=== PATIENT | female | born 1995 | race Caucasian/White ===

== ENCOUNTER 2017-02-19 20:43 | Emergency (ER) | payer OTHER ==
[~2017-02-19] VITALS: Ht 154.9 cm; Wt 105.0 kg
[~2017-02-19 20:43] MED LIST: NEXP68IM; PREN1CAP20 PO
[2017-02-19 20:44] VITALS: BP 137/84; PULSE 114; RESP 18; TEMP 98.8; O2SAT 99
[2017-02-19] MEDS ORDERED: BACT800T5 PO (21:47)
[2017-02-19] MEDS ORDERED: IBUP-232 PO (21:47)
--- NOTE | 2017-02-19 21:48 | PD ---
HPI Chief Complaint: Skin Problem Time Seen by Provider: 21:38 Travel History International Travel<30 days: No Contact w/Intl Traveler<30days: No Traveled to known affect area: No History of Present Illness HPI The patient is a 21-year-old female who presents emergency department for an abscess on the left buttock. The patient states she's had an area of swelling and tenderness for the last 3 days over the left buttock, along the medial aspect. The patient does note a history of previous abscesses to the buttocks, last summer, with subsequent incision and drainage. The patient denies any fever, chills, or sweats. Symptoms are mild, worse with palpation and sitting down, and there are no current alleviating factors. PFSH Past Medical History Asthma: Yes Respiratory: Yes (ASTHMA) ?: Unknown LMP: CURRENT Social History Alcohol Use: No Tobacco Use: No Substance Use: No Allergies-Medications (Allergen,Severity, Reaction): Coded Allergies: No Known Allergies (Unverified , 02/19/17) Reported Meds & Prescriptions Reported Meds & Active Scripts Active Review of Systems Except as stated in HPI: all other systems reviewed are Neg General / Constitutional: No: Fever Skin: Positive Other (as noted in the history of present illness) Physical Exam Narrative GENERAL: Awake, alert, pleasant 21-year-old female who appears her stated age and is in no acute respiratory distress. SKIN: Focused skin assessment warm/dry. HEAD: Atraumatic. Normocephalic. EYES: No injection or drainage. ENT: No nasal bleeding or discharge. Mucous membranes pink and moist. NECK: Trachea midline. No JVD. GASTROINTESTINAL: Abdomen soft, non-tender, nondistended. Back: The exam was performed in the presence of a female nurse. The patient has a fluctuant abscess in the left buttock just lateral to the superior aspect of the cleft. Fluctuance is noted, mild tenderness. No drainage noted. MUSCULOSKELETAL: No obvious deformities. No clubbing. No cyanosis. No edema. NEUROLOGICAL: Awake and alert. No obvious cranial nerve deficits. Motor grossly within normal limits. Normal speech. PSYCHIATRIC: Appropriate mood and affect; insight and judgment normal. Data Data Last Documented VS Vital Signs Date Time Temp Pulse Resp B/P Pulse Ox O2 Delivery O2 Flow Rate FiO2 02/19/17 20:44 98.8 114 18 137/84 99 MDM Medical Decision Making Medical Screen Exam Complete: Yes Emergency Medical Condition: Yes Medical Record Reviewed: Yes Differential Diagnosis Differential diagnosis includes abscess, pilonidal cyst, infected wound, folliculitis, carbuncle, furuncle. Narrative Course The patient appears to have an abscess versus pilonidal cyst, therefore, incision and drainage was performed by Leni SULLIVAN, please refer to the procedure no. The patient be discharged home on Bactrim, ibuprofen, and advised to place warm compresses over the affected area. Return if symptoms worsen or progress. Diagnosis Primary Impression: Abscess Patient Instructions: General Instructions Additional Instructions: Bactrim as directed. Ibuprofen as directed. Apply warm compresses. Follow-up with her primary physician. Return if symptoms worsen or progress. Med/Other Pt SpecificInfo: Prescription(s) given Scripts Ibuprofen 600 Mg [id number] Mg PO Q6H PRN (Pain/Inflammation) #20 TAB Ref 0 Prov:Renaldo Mendiola MD 02/19/17 Sulfamethoxazole-Trimethoprim (Bactrim DS)800-160 Mg Tab1 Tab PO BID #14 TAB Ref 0 Prov:Renaldo Mendiola MD 02/19/17 Disposition: DISCHARGE HOME Condition: Stable Renaldo Mendiola MD February 19, 2017 21:48
--- NOTE | 2017-02-20 06:09 | PD ---
Physical Exam Time Seen by Provider: 06:08 Data Data Last Documented VS Vital Signs Date Time Temp Pulse Resp B/P Pulse Ox O2 Delivery O2 Flow Rate FiO2 02/19/17 20:44 98.8 114 18 137/84 99 Orders Wound Culture And Gram Stain (02/19/17 22:15) [facility] Medical Record Reviewed: Yes Supervised Visit with LUCIA: No Procedures Procedure Narrative INCISION AND DRAINAGE OF ABSCESS: The area was prepped and was sterilely draped. Topical ethyl chloride was used to anesthetize the area. The area was properly anesthetized. A number 11 scalpel was used to make a [1-cm incision across the area of the abscess. Cultures were obtained. The abscess was drained an irrigated with normal saline. Quarter inch iodoform packing was placed in the wound. Sterile dressing applied. Patient advised to have packing removed in two days. Diagnosis Primary Impression: Abscess Patient Instructions: General Instructions, Abscess Incision and Drainage (ED) Departure Forms: Tests/Procedures Additional Instruction: Bactrim as directed. Ibuprofen as directed. Apply warm compresses. Follow-up with her primary physician. Return if symptoms worsen or progress. Scripts Ibuprofen 600 Mg [id number] Mg PO Q6H PRN (Pain/Inflammation) #20 TAB Ref 0 Prov:Renaldo Mendiola MD 02/19/17 Sulfamethoxazole-Trimethoprim (Bactrim DS)800-160 Mg Tab1 Tab PO BID #14 TAB Ref 0 Prov:Renaldo Mendiola MD 02/19/17 Disposition: 01 DISCHARGE HOME Condition: Stable Leni LouisP February 20, 2017 06:09
== END 2017-02-19 22:37 | disposition home or self-care (01) ==
LOC: NEPD 20:43
DX: L02.31 Cutaneous abscess of buttock (principal)
CPT/HCPCS: 10061; 87070; 87205